=== PATIENT | male | born 1975 | race Caucasian/White ===

== ENCOUNTER 2018-08-26 02:50 | Emergency (ER) | payer BC ==
[~2018-08-26] VITALS: Ht 167.6 cm; Wt 87.3 kg
[2018-08-26 02:59] VITALS: TEMP 98.7
[2018-08-26] MEDS ORDERED: LIPITOR 40MG TA40 MG PO (03:05)
[2018-08-26] MEDS ORDERED: NORVASC 5MG5 MG/TAB PO (03:05)
[2018-08-26 03:29] LABS: BASO # 0.1 (0.0-0.2); BASO % 0.6 % (0.0-2.0); EOS # 0.2 (0.0-0.7); EOS % 1.4 % (0-4.0); GRAN # 5.7 (1.4-6.5); GRAN % 49.1 % (42.2-75.2); HEMATOCRIT 46.5 % (42.0-52.0); HEMOGLOBIN 15.4 g/dl (13.5-18.0); LYMPH # 4.5 (1.2-3.4); LYMPH % 38.4 % (20.0-51.0); MEAN CELL VOLUME 90 fl (80.0-100.0); MEAN CORPUSCULAR HEMOGLOBIN 30 pg (27.0-31.0); MEAN CORPUSCULAR HGB CONC 33 g/dl (33.0-37.0); MEAN PLATELET VOLUME 10.4 fl (7.4-10.4); MONO # 1.2 (0.1-0.6); MONO % 10.1 % (1.7-9.3); PLATELET COUNT 285 K/mm3 (130-400); RED BLOOD COUNT 5.19 M/mm3 (4.20-5.60); REDCELL DISTRIBUTION WIDTH-CV 12.1 % (11.5-14.5)
[2018-08-26 03:35] LABS: ALANINE AMINOTRANSFERASE 45 U/L (21-72); ALBUMIN 4.9 gm/dL (3.5-5.0); ALKALINE PHOSPHATASE 118 U/L (50-136); ANION GAP 12 mmol/L (7-16); AST,SGOT 37 U/L (15-37); BLOOD UREA NITROGEN 16 mg/dL (9-20); CALCIUM 9.1 mg/dL (8.4-10.2); CARBON DIOXIDE 25 mmol/L (22-30); CHLORIDE 105 mmol/L (98-107); CREATININE, serum 0.76 (0.66-1.25); GLUCOSE 106 mg/dL (74-106); POTASSIUM 3.9 mmol/L (3.4-5.0); SODIUM 141 mmol/L (137-145); TOTAL PROTEIN 8.5 gm/dL (6.4-8.2)
[2018-08-26 03:49] LABS: TROPONIN-I < 0.012 ng/mL (0.000-0.035)
[2018-08-26 04:19] LABS: MAGNESIUM 2.2 mg/dL (1.6-2.3)
[2018-08-26 06:10] VITALS: BP 142/90; PULSE 62
[2018-08-26] MEDS ORDERED: NORVASC2.5 MG PO (06:16)
== END 2018-08-26 06:18 | disposition home or self-care (01) ==
LOC: COL.ER 02:50
PROVIDERS: Emergency Medicine
DX: R07.89 Other chest pain (principal); E78.5 Hyperlipidemia, unspecified; R20.2 Paresthesia of skin; I10 Essential (primary) hypertension

== ENCOUNTER 2021-11-06 08:23 | Day surgery (SDC) | payer BC ==
[~2021-11-06] VITALS: Ht 167.6 cm; Wt 92.8 kg
[~2021-11-06 08:23] MED LIST: LIPITOR 40MG TA40 MG PO; NORVASC 5MG5 MG/TAB PO; NORVASC2.5 MG PO
[2021-11-06] MEDS ORDERED: NORVASC 10MG10 MG PO (09:27)
[2021-11-06] MEDS ORDERED: CLARITIN 1010 MG/TAB PO (09:28)
[2021-11-06] MEDS ORDERED: PRILOSEC 20MG20 MG PO (09:28)
[2021-11-06] MEDS ORDERED: HYGROTON 2525 MG/TAB (09:28)
[2021-11-06 09:34] VITALS: BP 149/95; PULSE 92; TEMP 98.6
[2021-11-06 10:25] VITALS: BP 128/85; PULSE 77; TEMP 97.5
--- NOTE | 2021-11-06 10:25 | NUR ---
PATIENT ARRIVES TO ROOM 2 VIA CART. ASSIST X 2 TO CHAIR. MOM AT BEDSIDE. PATIENT REQUESTS ICE WATER AND A MUFFIN. VITAL SIGNS WNL. WILL CONTINUE TO MONITOR.
[2021-11-06 10:40] VITALS: BP 107/89; PULSE 67
--- NOTE | 2021-11-06 10:40 | NUR ---
VITAL SIGNS ARE STABLE. DOCTOR AND MOM AT BEDSIDE. IV REMOVED. PATIENT DENIES PAIN AND NAUSEA AFTER EATING. WILL CONTINUE TO MONITOR.
[2021-11-06 10:52] VITALS: BP 129/87; PULSE 69
--- NOTE | 2021-11-06 10:53 | NUR ---
PATIENT IS READY FOR DISCHARGE. DISCHARGE INSTRUCTIONS REVIEWED WITH PATIENT AND MOM. WILL DISCHARGE ONCE HE GETS DRESSED.
== END 2021-11-06 10:53 | disposition home or self-care (01) ==
LOC: SDCO 08:23
DX: Z12.11 Encounter for screening for malignant neoplasm of colon (principal); D12.4 Benign neoplasm of descending colon; D12.8 Benign neoplasm of rectum; K29.50 Unspecified chronic gastritis without bleeding; K31.7 Polyp of stomach and duodenum; K21.9 Gastro-esophageal reflux disease without esophagitis; K29.80 Duodenitis without bleeding; I10 Essential (primary) hypertension
CPT/HCPCS: J2704; J7030